=== PATIENT | female | born 1935 | race Caucasian/White ===

== ENCOUNTER 2019-03-12 13:17 | Emergency (ER) | payer MEDICARE, OTHER ==
--- OUTSIDE RECORDS SUMMARY | 2019-03-12 13:22 | XMS REPORT | Continuity of Care Document ---
:1935 External Reference #:[id number] Author Name Oscar Lake M.D. Address [address] [place] [address] Care Team Providers Name Role Phone Oscar Ghosh M.D. - Internal Care Team Information Reservoir Engineer Medicine George Nesbitt M.D. - Urology Care Team Information Reservoir Engineer [phone] Saul Galvan MD - Care Team Information Reservoir Engineer [phone] Ophthalmology Problems Active Problems Provider Date Seasonal allergy Onset: Primary open angle glaucoma Jessica Dooley O.D. Onset: 08/05/2014 Chronic allergic conjunctivitis Jessica Dooley O.D. Onset: 08/05/2014 Nuclear senile cataract Oscar Lake M.D. Onset: 09/07/2014 Moderate Glaucoma Oscar Lake M.D. Onset: 09/07/2014 Pseudophakia Oscar Lake M.D. Onset: 09/07/2014 Primary open-angle glaucoma, moderate Oscar Lake M.D. Onset: 2015 stage Superficial punctate keratitis Stephanie Morgan O.D. Onset: 02/05/2015 Presence of intraocular lens Stephanie Morgan O.D. Onset: 02/05/2015 Tear film insufficiency Breanna Verduzco O.D. Onset: 02/20/2015 Bilateral primary open angle glaucoma Oscar Lake M.D. Onset: 02/01/2016 Bilateral primary open angle glaucoma Oscar Lake M.D. 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/15/2018 Social History Type Date Description Comments Sex Unknown ETOH Use Occasionally consumes alcohol Tobacco Use Start: Unknown End: Unknown Patient is a former smoker Smoking Status Reviewed: 02/06/19 Patient is a former smoker Allergies, Adverse Reactions, Alerts Active Allergies Reaction Severity Comments Date Beta Adrenergic Blockers 08/05/2014 Xalatan 08/05/2014 Flarex 08/05/2014 Sulfa Antibiotics 08/05/2014 Bacitracin 08/05/2014 TobraDex 08/05/2014 Tobrex 08/05/2014 Medications Active Medications SIG Qnty Indications Ordering Provider Date Warm Compresses as needed Oscar Lake, 02/05/2019 Alejandro Systane Ultra Q Oscar Lake, 02/05/2019 0.4-0.3% M.D. Solution Theratears Night Time Q Oscar Lake, 10/25/2015 Alejandro Travatan Z instill 1 drop 10ml H40.11x2 Oscar Lake, 02/05/2015 0.004% into both eyes M.DLinda Solution every evening Vitamin C ER Unknown 500mg Capsules ER Multi Vitamin Daily Unknown Tablets Flaxseed Oil 1 by mouth every Unknown 1000mg day Capsules Evista Unknown 60mg Tablets Estrace Unknown 1mg Tablets Metoprolol Succinate Unknown ER 25mg Tablets ER 24HR Calcium 600+D 2 in am Unknown 600-800 Tablets Preservision Areds 2 1 cap by mouth 360caps Oscar Lake, twice a day M.DLinda Areds 2 Capsules Estradiol Unknown 0.1mg/GM Cream History Medications Erythromycin Apply To The 1Tube S05.01xA Esvin Quigley, 11/07/2018 - 5mg/GM Right Eye AT M.D. 11/07/2018 Ointment Night For 5 Days Ofloxacin instill 1 drop 5ml S05.01xA Esvin Quigley, 11/07/2018 - (Ophthalmic) right eye Three M.D. 11/15/2018 0.3% times a day Solution Immunizations Description No Information Available Vital Signs Description No Information Available Results Description No Information Available Procedures Date Code Description Status 11/07/2018 57187 Est Patient Intermediate Exam Completed Medical Devices Description No Information Available Encounters Type Date Location Provider Dx Diagnosis Office Visit 11/15/2018 Jessica Montes, H16.122 Filamentary 9:00a josie RAJPUT O.D. keratitis, left eye Office Visit 11/12/2018 Esvin Montes S05.01xS Inj conjunctiva and 9:00a josie RAJPUT M.D. 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 11/12/2018 S05.01xS Injury of conjunctiva and corneal abrasion Esvin Quigley M.D. without foreign body, right eye, sequela 11/12/2018 H40.1131 Primary open-angle glaucoma, bilateral, Esvin Quigley M.D. mild stage 11/07/2018 S05.01xA Injury of conjunctiva and corneal abrasion Esvin Quigley M.D. without foreign body, right eye, initial encounter Plan of Treatment No Information Available Functional Status Description No Information Available Mental Status Description No Information Available Referrals Description No Information Available
--- OUTSIDE RECORDS SUMMARY | 2019-03-12 13:22 | XMS REPORT | Continuity of Care Document ---
:1935 External Reference #:[id number] Author Name Oscar Lake M.D. Address [address] [place] [address] Care Team Providers Name Role Phone Oscar Ghosh M.D. - Internal Care Team Information Slunk Skin Curer [phone] Medicine George Nesbitt M.D. - Urology Care Team Information Slunk Skin Curer [phone] Saul Galvan MD - Care Team Information Slunk Skin Curer [phone] Ophthalmology Problems Active Problems Provider Date Seasonal [...] Available Procedures Date Code Description Status 11/07/2018 30363 Est Patient Intermediate Exam Completed Medical Devices [...] mild stage Assessments Date Code Description Provider 02/06/2019 H35.3132 Nonexudative age-related macular Oscar Lake M.D. degeneration, bilateral, in 02/06/2019 H40.1131 Primary open-angle glaucoma, bilateral, Oscar Lake M.D. mild stage 02/06/2019 Z96.1 Presence of intraocular lens Oscar Lake M.D. 02/06/2019 H04.123 Dry eye syndrome of bilateral lacrimal Oscar Lake M.D. 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 11/12/2018 S05.01xS Injury of conjunctiva and corneal abrasion Esvin Quigley M.D. without foreign body, right eye, sequela 11/12/2018 H40.1131 Primary open-angle glaucoma, bilateral, Esvin Quigley M.D. mild stage 11/07/2018 S05.01xA Injury of conjunctiva and corneal abrasion Esvin Quigley M.D. without foreign body, right eye, initial encounter Plan of Treatment 02/06/2019 - Oscar Lake M.D.H35.3132 Nonexudative age-related macular degeneration, bilateral, inComments:Smoking can increase the risk of developing or worsening any eye related disease, as well as affect your overall health. If you are a smoker, we strongly recommend that you quit.If you are not a smoker , we strongly recommend that you do not start. You have Macular Degeneration. Check your Amsler Grid, with each eye separately, and take the AREDS II formula vitamins. If you notice any changes in your vision, please call the office and schedule an appointment to see any of the doctors here.Follow up:6 Month Follow Up IOP Check OCT ON Visual Field 30-2 At your next visit, we are not planning to dilate your eyes. However, if you have any changes in your vision or new symptoms, there are certain situations that require us to dilate your eyes. If Dr. Lake requests any additional testing, that may require extra time. If you have any questions before your next appointment, please call our office at .H47.2085 Primary open-angle glaucoma, bilateral, mild stageComments: Your glaucoma is stable at this time.Your eye pressure is within an acceptable range, and your testing does not show any further deterioration at this time. Please continue your treatment.Z96.1 Presence of intraocular lensComments:The artificial lens implants in both eyes appear to be stable at this time.H04.123 Dry eye syndrome of bilateral lacrimal glands Functional Status Description No Information Available Mental Status Description No Information Available Referrals Description No Information Available
--- OUTSIDE RECORDS SUMMARY | 2019-03-12 13:22 | XMS REPORT | Continuity of Care Document ---
:1935 External Reference #:[id number] Author Name Lyndsey Robertson MD Address [address] [place] [address] Care Team Providers Name Role Phone Taina Quintana MD - Internal Care Team Information Cable Worker Helper [phone] Medicine Oscar Ghosh - Family Care Team Information Cable Worker Helper [phone] Problems Active Problems Provider Date Disorder of bone Riccardo Desir M.D. Onset: 08/21/2011 Atrophic vaginitis Riccardo Desir M.D. Onset: 08/21/2011 Osteochondropathy DEB Beth Onset: 01/25/2015 Social History Type Date Description Comments Sex Unknown Tobacco Use Start: Unknown End: Unknown Patient is a former smoker Smoking Status Reviewed: 02/07/19 Patient is a former smoker Allergies, Adverse Reactions, Alerts Active Allergies Reaction Severity Comments Date Motrin 01/05/2005 Aleve 01/05/2005 Sulfa 10/11/2006 Macrobid 10/11/2006 Bacitracin 01/07/2009 Benza 01/13/2010 Codeine 01/20/2013 Lactose (Intolerance) 01/21/2014 Medications Active Medications SIG Qnty Indications Ordering Date Provider Raloxifene HCL take 1 tablet by 90tabs Ailyn, 07/21/2015 60mg mouth once daily MD Lyndsey Tablets Diflucan 1 by mouth times 1 2tabs Ailyn, 01/20/2013 150mg day as needed MD Lyndsey Tablets Estrace use 03/20 42.5units Ailyn, 12/31/2006 0.1mg/GM applicatorful MD Lyndsey Cream vaginally twice a week Travatan Z Unknown Multivitamins Unknown Calcium + D Unknown Flax Seed Oil Unknown Judi Allergy Unknown Icaps Areds 2 Unknown Metoprolol Succinate Unknown ER Medications Administered in Office Medication SIG Qnty Indications Ordering Provider Date PT SCRN Tbco Id as Non User Lyndsey Robertson MD 02/07/2019 Injection No PT Tbco SCRN DEB Pike 02/04/2018 Injection PT SCRN Tbco Id as Non User Raisa Mendoza MD 02/04/2018 Injection Immunizations Description No Information Available Vital Signs Date Vital Result Comment 02/07/2019 1:57pm BP Systolic 112 mmHg BP Diastolic 70 mmHg Height 55.5 inches 4'7.50" Last Menstrual Period 9798631 4 Parity 3 02/04/2018 2:36pm BP Systolic 124 mmHg BP Diastolic 66 mmHg Height 56.5 inches 4'8.50" Weight 140.00 lb BMI (Body Mass Index) 30.8 kg/m2 Last Menstrual Period 6501711 4 Parity 3 Results Description No Information Available Procedures Date Code Description Status 01/27/2018 17981265 Mammogram Completed 10/21/2009 54855496 Colonoscopy Completed Medical Devices Description No Information Available Encounters Type Date Location Provider Dx Diagnosis Office Visit 02/07/2019 2:[facility]p [facility] Lyndsey Robertson MD E66.8 Other obesity M81.0 Age-related osteoporosis w/o current pathological fracture N95.2 Postmenopausal atrophic vaginitis Assessments Date Code Description Provider 02/07/2019 E66.8 Other obesity Lyndsey Robertson MD 02/07/2019 M81.0 Age-related osteoporosis without current Lyndsey Robertson MD pathological fracture 02/07/2019 N95.2 Postmenopausal atrophic vaginitis Lyndsey Robertson MD Plan of Treatment No Information Available Functional Status Description No Information Available Mental Status Description No Information Available Referrals Description No Information Available
[2019-03-12 13:30] VITALS: BP 165/71
--- NOTE | 2019-03-12 13:42 | UC ---
Lower Extremity/Ankle HPI - HPI Summary HPI Summary: 10 days ago tripped and scraped her R upper doherty in the kitchen. she lives alone. has been putting triple ointment on it daily. wanted to know if it was infected. denies pain or purulent material. - History of Current Complaint Chief Complaint: MARILYNkin Stated Complaint: LEG INJURY WOUND RECHECK Time Seen by Provider: 03/12/19 13:21 Hx Obtained From: Patient Pain Intensity: 0 Pain Scale Used: 0-10 Numeric Aggravating Factor(s): Nothing Alleviating Factor(s): Nothing Able to Bear Weight: Yes - Allergies/Home Medications Allergies/Adverse Reactions: Allergies Allergy/AdvReac Type Severity Reaction Status Date / Time bacitracin Allergy Unknown Verified 03/12/19 13:42 Reaction Details Beta-Blockers Allergy Unknown Verified 03/12/19 13:42 (Beta-Adrenergic Bloc Reaction Details dexamethasone [From TobraDex] Allergy Unknown Verified 03/12/19 13:42 Reaction Details fluorometholone [From Flarex] Allergy Rash Verified 03/12/19 13:42 ibuprofen [From Motrin] Allergy Rash Verified 03/12/19 13:42 latanoprost [From Xalatan] Allergy Unknown Verified 03/12/19 13:42 Reaction Details tobramycin [From TobraDex] Allergy Unknown Verified 03/12/19 13:42 Reaction Details Sulfa (Sulfonamide AdvReac Nausea Verified 03/12/19 13:42 Antibiotics) Home Medications: Home Medications Cholecalciferol TAB* [Vitamin D TAB*] 400 unit PO DAILY 03/12/19 [History Confirmed 03/12/19] Metoprolol Tartrate TAB* [Lopressor TAB*] 25 mg PO BID 03/12/19 [History Confirmed 03/12/19] PMH/Surg Hx/FS Hx/Imm Hx Previously Healthy: Yes Cardiovascular History: Hypertension - Surgical History Surgical History: Yes Surgery Procedure, Year, and Place: HYSTERECTOMY, inguinal hernia repair. 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 BILATERAL CATARACT, 2010 - Family History Known Family History: Positive: Non-Contributory - Social History Alcohol Use: Daily Alcohol Amount: Per pt, 1 glass of wine before dinner each night Substance Use Type: None Smoking Status (MU): Former Smoker Amount Used/How Often: STARTED AGE 9, 1/2 PACK A DAY Length of Time of Smoking/Using Tobacco: Age [age] Have You Smoked in the Last Year: No When Did the Patient Quit Smoking/Using Tobacco: AGE 26 - Immunization History Most Recent Influenza Vaccination: Fall 2013 Most Recent Tetanus Shot: Within past 5 years Most Recent Pneumonia Vaccination: Has received Review of Systems All Other Systems Reviewed And Are Negative: Yes Constitutional: Negative: Fever, Chills Skin: Positive: Other - scab r upper leg. Negative: Rash Musculoskeletal: Negative: Arthralgia, Edema Physical Exam Triage Information Reviewed: Yes Appearance: Well-Appearing Vital Signs: Initial Vital Signs Temp 97.8 F 03/12/19 13:21 Pulse 56 03/12/19 13:21 Resp 16 03/12/19 13:21 BP 165/71 03/12/19 13:21 Pulse Ox 100 03/12/19 13:21 Vital Signs Reviewed: Yes Respiratory: Positive: No respiratory distress Neurological: Positive: Alert Skin: Positive: Other - abrasion 8mm R upper doherty scabbed over, no purulent material, minimal redness surrounding area. No streaking or swelling. Lower Extremity Course/Dx - Course Course Of Treatment: 10 day hx of healing abrasion pt wanted checked as she was concerned it was not healing. On exam there was approx 2mm of erythema surrounding an 8mm abrasion w / dried scab on it. No purulent material. Appears to be healing well. Advised to keep area clean and ok to use triple ointment bid if needed. advised to go to primary care should redness start expanding or if she develops fever. She will talk to pcp about bp and occupational health for fall risk assessment. - Differential Dx/Diagnosis Differential Diagnosis/HQI/PQRI: Cellulitis, Other Provider Diagnosis: Abrasion Discharge ED - Sign-Out/Discharge Documenting (check all that apply): Patient Departure All imaging exams completed and their final reports reviewed: No Studies - Discharge Plan Condition: Good Disposition: HOME Patient Education Materials: Abrasion (ED) Referrals: Oscar Ghosh MD [Primary Care Provider] - Additional Instructions: Please speak with your primary care provider about fall risk assessments through occupational therapy. - Billing Disposition and Condition Condition: GOOD Disposition: Home - Attestation Statements Provider Attestation: Per institutional requirements, I have reviewed the chart, however, I was not consulted specifically or made aware of this patient by the midlevel provider. I did not personally evaluate, interact with , or disposition this patient.
== END 2019-03-12 13:54 | disposition home or self-care (01) ==
LOC: UCEAST 13:17
DX: S70.311A Abrasion, right thigh, initial encounter (principal); I10 Essential (primary) hypertension; Z79.899 Other long term (current) drug therapy; Z87.891 Personal history of nicotine dependence; Z88.1 Allergy status to other antibiotic agents; Z88.6 Allergy status to analgesic agent; Z88.8 Allergy status to other drugs, medicaments and biological substances; Z88.2 Allergy status to sulfonamides; W18.40XA Slipping, tripping and stumbling without falling, unspecified, initial encounter; Y92.89 Other specified places as the place of occurrence of the external cause
CPT/HCPCS: 99211; G0463

== ENCOUNTER 2019-05-26 11:54 | Emergency (ER) | payer MEDICARE, OTHER ==
--- OUTSIDE RECORDS SUMMARY | 2019-05-26 12:10 | XMS REPORT | Continuity of Care Document ---
:1935 External Reference #:[id number] Author Name NAIMA Owens Address [address] [place] [address] Care Team Providers Name Role Phone Oscar Ghosh MD - Family Care Team Information Television Director [phone] Medicine Problems Active Problems Provider Date Shoulder joint pain Ramana Ortiz M.D. 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 Onset: 08/06/2012 Malaise and fatigue Oscar Ghosh M.D. Onset: 08/06/2012 Essential hypertension Ama Desai M.D. Onset: 01/28/2014 Anxiety state Ama Desai M.D. Onset: 01/28/2014 Gastroesophageal reflux disease Ama Desai M.D. Onset: 01/28/2014 Chest pain Oscar Ghosh M.D. Onset: 01/30/2014 Flatulence, eructation and gas pain Oscar Ghosh M.D. Onset: 02/06/2014 Open wound of nasal sinus Oscar Ghosh M.D. Onset: 09/02/2014 Hypermature cataract Oscar Ghosh M.D. Onset: 12/30/2014 Candidiasis of mouth Jack Locke M.D. Onset: 07/22/2016 Erythematous condition Oscar Ghosh M.D. Onset: 08/23/2015 Unspecified open wound, right lower leg, Oscar Ghosh M.D. Onset: 08/05 subsequent encounter Diarrhea Oscar Ghosh M.D. Onset: 08/06/2015 Social History Type Date Description Comments Sex Unknown Tobacco Use Start: Unknown End: Unknown Former Cigarette Smoker Tobacco Use Start: Unknown End: Unknown Patient is a former smoker Smoking Status Reviewed: 04/23/19 Patient is a former smoker Allergies, Adverse Reactions, Alerts Active Allergies Reaction Severity Comments Date Macrobid 09/23/2007 Sulfa Drugs 09/23/2007 Benzalkonium Chloride 09/23/2007 Percocet 09/23/2007 Aleve 09/23/2007 Bacitracin 09/23/2007 Lactose (Intolerance) 01/03/2014 Zithromax Nausea and Vomiting dizziness 02/20/2014 Medications Active Medications SIG Qnty Indications Ordering Provider Date Ceftin 1 tablet twice 14tabs J06.9 Byron Biswas, 04/23/2019 500mg Tablets a day for 7 M.D. days. [employer] Oscar Ghosh, 08/13/2018 For Her Arthritis M.D. Metoprolol Succinate take 1 tablet 180tabs I10 Oscar Ghosh, 2013 ER by mouth twice M.D. 25mg Tablets ER 24HR a day Travatan Z 1 gtt both Family Medicine 02/19/2008 0.004% eyes bid [facility] Estrace as Dir Family Medicine 02/19/2008 0.1mg/GM Cream [facility] Evista 1 PO qd 60units Family [facility] 09/12/2001 60mg [facility] Calcium 600 High Unknown Potency 600mg Tablets Vitamin C 1 poqd Unknown 500mg Capsules Flaxseed Oil 1 po qd Unknown 1000mg Capsules Multivitamins 1 po qd 30caps Unknown Capsules Judi Allergy as needed Unknown History Medications Amoxicillin 1 tablet twice a 14tabs J06.9 Byron Biswas, 04/23/2019 - 875mg day for 7 days. M.D. 04/23/2019 Tablets Medications Administered in Office Medication SIG Qnty Indications Ordering Provider Date Injection Subcutaneous Or Oscar Ghosh M.D. 12/05/2013 Intramuscular Injection Injection, Unclassified Drug Oscar Ghosh M.D. 10/30/2003 Injection Immunizations CPT Code Status Date Vaccine Lot # [id number] Given 12/27/2018 High-Dose, Influenza Virus Vacccine-fluzone 65 [id number] and older 14515 Given 12/18/2017 High-Dose, Influenza Virus Vacccine-fluzone 65 [id number] and older 54835 Given 12/20/2016 Influenza Vac, Quadrivalent, Slit Virus, Im [id number] 04766 Given 12/31/2015 Influenza Vac, Quadrivalent, Slit Virus, Im [id number] 27988 Given 12/21/2014 Influenza Vac, Quadrivalent, Slit Virus, Im [id number] 87702 Given 12/21/2014 Pneumococcal Conjugate Vacc-13 [id number] 45167 Given 12/26/2013 High-Dose, Influenza Virus Vacccine-fluzone 65 and older 41833 Given 08/21/2013 Tdap Tetanus, W Pertussis [id number] Q2038 Given 12/17/2012 Split Influenza Medicare: Fluzone [id number] 23849 Given 08/06/2012 Zostivax [id number] 92065 Given 12/17/2011 DO Not Use Split Influenza Virus Vaccine [id number] Given 01/03/2011 Split Influenza Medicare: Fluzone [id number] 42927 Given 12/27/2009 DO Not Use Split Influenza Virus Vaccine [id number] 52569 Given 12/31/2007 DO Not Use Split Influenza Virus Vaccine [id number] 54376 Given 01/05/2007 Pneumococcal Immunization [id number] 97450 Given 01/05/2007 DO Not Use Split Influenza Virus Vaccine [id number] 90224 Given 01/15/2006 DO Not Use Split Influenza Virus Vaccine [id number] 85824 Given 01/06/2005 DO Not Use Split Influenza Virus Vaccine 11441 Given 10/30/2003 Td Immunization, For Use In Individuals 7 Years Or Older 19737 Given 12/26/2002 DO Not Use Split Influenza Virus Vaccine 39974 Given 12/26/2002 DO Not Use Split Influenza Virus Vaccine 77252 Given 12/31/2001 Whole Influenza Virus Vaccine 27504 Given 12/31/2001 DO Not Use Split Influenza Virus Vaccine 93930 Given 12/14/2000 DO Not Use Split Influenza Virus Vaccine 73702 Given 01/12/2000 DO Not Use Split Influenza Virus Vaccine 62354 Given 01/15/1997 Pneumococcal Immunization 59491 Given 12/30/1996 Influenza Immunization Vital Signs Date Vital Result Comment 04/23/2019 1:04pm BP Systolic 140 mmHg BP Diastolic 88 mmHg Heart Rate 72 /min Body Temperature 96.9 F Respiratory Rate 16 /min 11/26/2018 4:02pm BP Systolic 122 mmHg BP Diastolic 74 mmHg Heart Rate 84 /min Body Temperature 98.2 F Respiratory Rate 18 /min O2 % BldC Oximetry 97 % Results Test Acquired Date Facility Test Result H/L Range Note Flu A&B (Fma) 04/23/2019 family medicine Influenza A neg (607)- - Influenza B neg Procedures Date Code Description Status 01/31/2019 [id number] Mammogram Completed 11/26/2018 03021 Pulse Oximetry Completed 11/20/2018 35599 Pulse Oximetry Completed 01/30/2018 63419992 Mammogram Completed 01/29/2017 [id number] Mammogram Completed 01/28/2016 39058665 Mammogram Completed 01/25/2015 66312770 Mammogram Completed 01/23/2014 87843745 Mammogram Completed 01/24/2013 [id number] Mammogram Completed 01/24/2012 [id number] Mammogram Completed 01/10/2011 69271216 Mammogram Completed 12/17/2010 325537752 Bone Mineral Density Test Completed 01/06/2010 [id number] Mammogram Completed 10/21/2009 44432893 Colonoscopy Completed 01/05/2009 [id number] Mammogram Completed 12/31/2007 [id number] Mammogram Completed 12/27/2006 [id number] Mammogram Completed Medical Devices Description No Information Available Encounters Type Date Location Provider Dx Diagnosis Office Visit 11/26/2018 [facility] Office Judi Fenton J20.9 Acute bronchitis, 4:00p Alejandro Lewis unspecified Office Visit 11/20/2018 [facility] Office Neel Lombardo06.Darryl Acute upper 4:00p Afnp-C respiratory infection, unspecified Assessments Date Code Description Provider 04/23/2019 J06.9 Acute upper respiratory infection, NAIMA Owens unspecified 12/27/2018 Z23 Encounter for immunization Oscar Ghosh M.D. 11/26/2018 J20.9 Acute bronchitis, unspecified Judi Lewis M.D. 11/20/2018 J06.9 Acute upper respiratory infection, Melissa Butts Afnp-C unspecified Plan of Treatment 04/23/2019 - Adrienne Ontiverosmireille, PAJ06.9 Acute upper respiratory infection, unspecifiedNew Medication:Ceftin 500 mg - 1 tablet twice a day for 7 days.Amoxicillin 875 mg - 1 tablet twice a day for 7 days.Comments:Start antibiotic - CeftinContinue Zyrtec and Tylenol Increase waterUse humidifier at night Return ifsymptoms worsen or don't improveAllComments:PCMHMedication Management Patient Understands medications he's taking? Yes Are there Barriers to Adherence? No Has the patient been asked about herbal supplements and therapies, and OTC meds? Yes Care Plan1. Patient has been queried about patient's goals/preferences and functional/lifestyle goals at relevant visits. Yes If relevant, describe: N/A2. Treatment goals as explained to the patient: above3. Are there barriers to meeting treatment goals ? No If Yes, please describe:4. Self-Management goals as described to the patient: Yes As always, we strongly encourage a healthy diet and making physical activity a part of your every day life. If you have questions about how or where to start, please contact the office. Functional Status Description No Information Available Mental Status Description No Information Available Referrals Refer to Reason for Referral Status Appt Date [facility] Evaluate and treat. LT Scheduled [address] [facility]3] [id number] [phone] [facility] Evaluate and treat. LT Scheduled 01/07/[address] [facility]3] [address] [phone]
--- OUTSIDE RECORDS SUMMARY | 2019-05-26 12:10 | XMS REPORT | Continuity of Care Document ---
:1935 External Reference #:[id number] Author Name NAIMA Owens Address [address] [place] [address] Care Team Providers Name Role Phone Oscar Ghosh MD - Family Care Team Information Produce Team Lead Medicine Problems Active Problems Provider Date Shoulder [...] Comments Sex Unknown Tobacco Use Start: Unknown Nonsmoker Tobacco Use Start: Unknown Patient has never smoked Smoking Status Reviewed: 04/23/19 Patient has never smoked Allergies, Adverse Reactions, Alerts Active Allergies Reaction [...] 02/19/2008 0.004% eyes [facility] [place] Estrace as Dir Family Medicine 02/19/2008 0.1mg/GM [facility] Evista 1 PO qd 60units Family Medicine 09/12/2001 60mg [facility] Calcium 600 High Unknown Potency 600mg Tablets [...] CPT Code Status Date Vaccine Lot # [id number] Given 12/27/2018 High-Dose, Influenza Virus Vacccine-fluzone 65 [id number] and older 78524 Given 12/18/2017 High-Dose, Influenza Virus Vacccine-fluzone 65 [id number] and older 52088 Given 12/20/2016 Influenza Vac, Quadrivalent, Slit Virus, Im [id number] 28388 Given 12/31/2015 Influenza Vac, Quadrivalent, Slit Virus, Im [id number] 29549 Given 12/21/2014 Influenza Vac, Quadrivalent, Slit Virus, Im [id number] 17440 Given 12/21/2014 Pneumococcal Conjugate Vacc-13 [id number] 72094 Given 12/26/2013 High-Dose, Influenza Virus Vacccine-fluzone 65 and older 82340 Given 08/21/2013 Tdap Tetanus, W Pertussis [id number] Q2038 Given 12/17/2012 Split Influenza Medicare: Fluzone [id number] 35536 Given 08/06/2012 Zostivax [id number] 96016 Given 12/17/2011 DO Not Use Split Influenza Virus Vaccine [id number] Given 01/03/2011 Split Influenza Medicare: Fluzone [id number] 05048 Given 12/27/2009 DO Not Use Split Influenza Virus Vaccine [id number] 55360 Given 12/31/2007 DO Not Use Split Influenza Virus Vaccine [id number] 41697 Given 01/05/2007 Pneumococcal Immunization [id number] 68885 Given 01/05/2007 DO Not Use Split Influenza Virus Vaccine [id number] 19805 Given 01/15/2006 DO Not Use Split Influenza Virus Vaccine [id number] 10866 Given 01/06/2005 DO Not Use Split Influenza Virus Vaccine 95949 Given 10/30/2003 Td Immunization, For Use In Individuals 7 Years Or Older 85079 Given 12/26/2002 DO Not Use Split Influenza Virus Vaccine 12320 Given 12/26/2002 DO Not Use Split Influenza Virus Vaccine 99990 Given 12/31/2001 Whole Influenza Virus Vaccine 26214 Given 12/31/2001 DO Not Use Split Influenza Virus Vaccine 44323 Given 12/14/2000 DO Not Use Split Influenza Virus Vaccine 36955 Given 01/12/2000 DO Not Use Split Influenza Virus Vaccine 00036 Given 01/15/1997 Pneumococcal Immunization 42522 Given 12/30/1996 Influenza Immunization Vital Signs Date Vital Result Comment 04/23/2019 1:04pm BP Systolic 140 mmHg BP Diastolic 88 mmHg Heart Rate 72 /min Body Temperature 96.9 F Respiratory Rate 16 /min 11/26/2018 4:02pm BP Systolic 122 mmHg BP Diastolic 74 mmHg Heart Rate 84 /min Body Temperature 98.2 F Respiratory Rate 18 /min O2 % BldC Oximetry 97 % Results Description No Information Available Procedures Date Code Description Status 01/31/2019 67314378 Mammogram Completed 11/26/2018 75969 Pulse Oximetry Completed 11/20/2018 35406 Pulse Oximetry Completed 01/30/2018 [id number] Mammogram Completed 01/29/2017 [id number] Mammogram Completed 01/28/2016 [id number] Mammogram Completed 01/25/2015 [id number] Mammogram Completed 01/23/2014 55345528 Mammogram Completed 01/24/2013 [id number] Mammogram Completed 01/24/2012 [id number] Mammogram Completed 01/10/2011 [id number] Mammogram Completed 12/17/2010 578756073 Bone Mineral Density Test Completed 01/06/2010 [id number] Mammogram Completed 10/21/2009 [id number] Colonoscopy Completed 01/05/2009 [id number] Mammogram Completed 12/31/2007 [id number] Mammogram Completed 12/27/2006 [id number] Mammogram Completed Medical Devices Description No Information Available Encounters Type Date Location Provider Dx Diagnosis Office Visit 11/26/2018 [facility] Office Judi Fenton J20.9 Acute bronchitis, 4:00p Alejandro Lewis unspecified Office Visit 11/20/2018 [facility] Office Neel [email or web address] Acute upper 4:00p Afnp-C respiratory infection, unspecified Assessments Date Code Description Provider 04/23/2019 J06.9 Acute upper respiratory infection, NAIMA Owens unspecified 12/27/2018 Z23 Encounter for immunization Oscar Ghosh M.D. 11/26/2018 J20.9 Acute bronchitis, unspecified Judi Lewis M.D. 11/20/2018 J06.9 Acute upper respiratory infection, Melissa Butts Afsalena-C unspecified Plan of Treatment 04/23/2019 - NAIMA OwensJ06.9 Acute upper respiratory infection, unspecifiedNew Medication:Ceftin 500 [...] Referral Status Appt Date [facility] Evaluate and treat. LT Scheduled [address] [place] [facility] [address] [phone] [facility] Evaluate and treat. LT Scheduled 01/07/[address] [facility] [address] [phone]
[2019-05-26 13:36] VITALS: BP 134/60
--- NOTE | 2019-05-26 13:52 | ED ---
Lower Extremity - HPI Summary HPI Summary: This patient is an 84-year-old female presenting to the ED with concern for numbness and tingling in her bilateral lower extremities when waking up in the morning or sitting in her chair. She states when she begins to ambulate, then numbness and tingling resolves. She denies any pain. She does endorse some discoloration of a purple hue in the morning upon awakening. She states after she begins to ambulate, this resolves. She has been attending physical therapy for 2 months without improvement of her symptoms. She states her water aerobics class has helped her the most. She does not have a history of peripheral arterial disease, although does have a history of varicose veins. No history of DVT, recent travel, swelling or erythema to the bilateral lower extremities. No pain to the groin. She denies any symptoms when ambulating, only endorses symptoms with rest, worse when sitting in a chair. She does have twinges of "shooting cold feeling " down the inside of her bilateral lower extremities intermittently, however denies this to be painful. She is not currently on a blood thinner. - History of Current Complaint Chief Complaint: EDExtremityLower Stated Complaint: TOES ARE NUMB PER PT Time Seen by Provider: 05/26/19 12:40 Hx Obtained From: Patient Onset/Duration: Still Present - 2+ mos - not worsening Severity Initially: Moderate Severity Currently: Moderate Pain Intensity: 0 Pain Scale Used: Adult Non Verbal Timing: Intermittent Location: Is Discrete @ - bilateral lower ext Aggravating Factor(s): Other - rest Alleviating Factor(s): Other - movement Able to Bear Weight: No - Allergies/Home Medications Allergies/Adverse Reactions: Allergies Allergy/AdvReac Type Severity Reaction Status Date / Time bacitracin Allergy Unknown Verified 05/26/19 12:00 Reaction Details Beta-Blockers Allergy Unknown Verified 05/26/19 12:00 (Beta-Adrenergic Bloc Reaction Details dexamethasone [From TobraDex] Allergy Unknown Verified 05/26/19 12:00 Reaction Details fluorometholone [From Flarex] Allergy Rash Verified 05/26/19 12:00 ibuprofen [From Motrin] Allergy Rash Verified 05/26/19 12:00 latanoprost [From Xalatan] Allergy Unknown Verified 05/26/19 12:00 Reaction Details tobramycin [From TobraDex] Allergy Unknown Verified 05/26/19 12:00 Reaction Details Sulfa (Sulfonamide AdvReac Nausea Verified 05/26/19 12:00 Antibiotics) Home Medications: Home Medications Estradiol VAG CM (NF) [Estrace VAG CM (NF)] 1 applic VAGINAL DAILY 01/30/14 [ History Confirmed 03/12/19] Raloxifene (NF) [Evista(NF)] 1 tab PO DAILY 01/30/14 [History Confirmed 03/12/19 ] Ascorbic Acid [Vitamin C] 500 mg PO DAILY 12/30/14 [History Confirmed 03/12/19] Fexofenadine (NF) [Judi 180 (NF)] 180 mg PO PRN 12/30/14 [History Confirmed 12/30/14] Flax Seed Oil 1000 mg 500 mg PO DAILY 12/30/14 [History Confirmed 03/12/19] Multivitamin 1 dose PO DAILY 12/30/14 [History Confirmed 03/12/19] Travoprost Z 0.004% OPHTH (NF) [Travatan Z 0.004% OPTH (NF)] 1 drop BOTH EYES QPM 01/13/15 [History Confirmed 03/12/19] Cholecalciferol TAB* [Vitamin D TAB*] 400 unit PO DAILY 03/12/19 [History Confirmed 03/12/19] Metoprolol Tartrate TAB* [Lopressor TAB*] 25 mg PO BID 03/12/19 [History Confirmed 03/12/19] PMH/Surg Hx/FS Hx/Imm Hx Previously Healthy: Yes Endocrine/Hematology History: Denies: Hx Diabetes, Hx Thyroid Disease Cardiovascular History: Reports: Hx Angina, Hx Hypertension - ON MEDS Denies: Hx Pacemaker/ICD, Other Cardiovascular Problems/Disorders Respiratory History: Denies: Hx Asthma, Hx Chronic Obstructive Pulmonary Disease (COPD), Other Respiratory Problems/Disorders GI History: Denies: Hx Ulcer, Other GI Disorders Musculoskeletal History: Reports: Hx Arthritis - BACK, FOOT, NECK Denies: Hx Rheumatoid Arthritis, Hx Osteoporosis Sensory History: Reports: Hx Cataracts - BRIGIDO, Hx Contacts or Glasses - Glasses, Hx Glaucoma Denies: Hx Hearing Aid Opthamlomology History: Reports: Hx Cataracts - BRIGIDO, Hx Contacts or Glasses - Glasses, Hx Glaucoma Neurological History: Denies: Other Neuro Impairments/Disorders Psychiatric History: Denies: Hx Panic Disorder - Cancer History Cancer Type, Location and Year: endometrial cancer Hx Chemotherapy: No Hx Radiation Therapy: Yes - UTERINE 19 YRS AGO - Surgical History Surgery Procedure, Year, and Place: HYSTERECTOMY, inguinal hernia repair. 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 BILATERAL CATARACT, 2010 Hx Anesthesia Reactions: No - Immunization History Hx Pertussis Vaccination: No Immunizations Up to Date: Yes Infectious Disease History: No Infectious Disease History: Reports: Hx Shingles Denies: Hx Hepatitis, Hx Human Immunodeficiency Virus (HIV), History Other Infectious Disease, Traveled Outside the [place] in Last 30 Days - Family History Known Family History: Positive: Non-Contributory - Social History Occupation: Unemployed Lives: Alone Alcohol Use: Daily Alcohol Amount: Per pt, 1 glass of wine before dinner each night Hx Substance Use: No Substance Use Type: Reports: None Hx Tobacco Use: No Smoking Status (MU): Former Smoker Amount Used/How Often: STARTED AGE 9, 1/2 PACK A DAY Length of Time of Smoking/Using Tobacco: Age [age] Have You Smoked in the Last Year: No Review of Systems Negative: Fever, Chills, Fatigue, Skin Diaphoresis Negative: Palpitations, Chest Pain Negative: Shortness Of Breath, Cough Genitourinary: Negative Positive: no symptoms reported, see HPI Negative: Arthralgia, Myalgia Skin: Negative All Other Systems Reviewed And Are Negative: Yes Physical Exam Triage Information Reviewed: Yes Vital Signs On Initial Exam: Initial Vitals Temp Pulse Resp BP Pulse Ox 98.4 F 84 20 183/78 98 05/26/19 11:56 05/26/19 11:56 05/26/19 11:56 05/26/19 11:56 05/26/19 11:56 Vital Signs Reviewed: Yes Appearance: Positive: Well-Appearing, Well-Nourished Skin: Positive: Warm, Skin Color Reflects Adequate Perfusion Head/Face: Positive: Normal Head/Face Inspection Eyes: Positive: EOMI, MABLE, Conjunctiva Clear Neck: Positive: Supple, No Lymphadenopathy Respiratory/Lung Sounds: Positive: Clear to Auscultation, Breath Sounds Present Cardiovascular: Positive: RRR, Pulses are Symmetrical in both Upper and Lower Extremities Musculoskeletal: Positive: Normal, Strength/ROM Intact Neurological: Positive: Speech Normal Psychiatric: Positive: Normal, Anxious AVPU Assessment: Alert Procedures - Sedation Patient Received Moderate/Deep Sedation with Procedure: No Diagnostics - Vital Signs Vital Signs Temp Pulse Resp BP Pulse Ox 05/26/19 13:35 98.0 F 68 16 134/60 96 05/26/19 13:15 134/60 05/26/19 13:00 73 99 05/26/19 12:48 57 176/97 99 05/26/19 11:56 98.4 F 84 20 183/78 98 - Laboratory Lab Statement: Any lab studies that have been ordered have been reviewed, and results considered in the medical decision making process. Lower Extremity Course/Dx - Course Course Of Treatment: This patient is evaluated for bilateral lower extremity numbness and tingling intermittently, worse with sitting, better with ambulation. She has never been diagnosed with peripheral arterial disease in the past. She has been going to physical therapy for 2 months. She denies any claudication symptoms. Denies any pain at rest or during ambulation. She does endorse some dusky red/purplish hue to the bilateral feet in the morning prior to getting out of bed, but this quickly resolves with ambulation. No ulcerations noted. No erythema. Patient likely has a component of PAD, but she continues to deny pain. No venous stasis. Encouraged close f/u with PCP for futher evaluation. She will likely need a vascular consult or medication management. - Diagnoses Provider Diagnoses: Paresthesia Discharge ED - Sign-Out/Discharge Documenting (check all that apply): Patient Departure - Discharge Plan Condition: Good Disposition: HOME Patient Education Materials: Peripheral Artery Disease (ED) Referrals: Oscar Ghosh MD [Primary Care Provider] - Additional Instructions: Please follow up with Dr. Ghosh You may need further imaging or medication for your symptoms Keep up with your exercises - this will help your circulation - Billing Disposition and Condition Condition: GOOD Disposition: Home
== END 2019-05-26 13:35 | disposition home or self-care (01) ==
LOC: ED 11:54
DX: R20.2 Paresthesia of skin (principal); I10 Essential (primary) hypertension; Z79.899 Other long term (current) drug therapy; Z88.6 Allergy status to analgesic agent; Z88.3 Allergy status to other anti-infective agents; Z88.2 Allergy status to sulfonamides; Z88.8 Allergy status to other drugs, medicaments and biological substances; Z87.891 Personal history of nicotine dependence
CPT/HCPCS: 99282